=== PATIENT | female | born 1980 | race Caucasian/White ===

== ENCOUNTER 2016-04-27 10:53 | Inpatient (IN) | payer BC ==
[2016-04-27] MEDS ORDERED: DIAZEPAM 5 MG TAB PO ONE ×3 (11:26→14:25)
[2016-04-27] MEDS ORDERED: DIAZEPAM 5 MG TAB ONE ×3 (11:32→14:27)
[2016-04-27] MEDS ORDERED: THIAMINE 100 MG TAB PO ONE (11:35)
[2016-04-27] MEDS ORDERED: THIAMINE 100 MG TAB ONE (11:39)
[2016-04-27 11:43] LABS: BASOPHILS % (AUTO) 0 % (0-3); EOSINOPHILS % (AUTO) 0 % (0-9); HEMATOCRIT 40 % (35-47); MEAN CORPUSCULAR HGB CONC 35.5 gm/dl (32.0-36.0); MEAN CORPUSCULAR VOLUME 86 fL (81-99); MONOCYTES % (AUTO) 3.2 % (0-12)
[2016-04-27 12:07] LABS: ALBUMIN 4.4 gm/dl (3.4-5.0); ALT 33 IU/L (14-63); CALCIUM 9.2 mg/dl (8.5-10.1); GLOM FILT RATE 67 mL/min (>60); MAGNESIUM 1.5 mg/dl (1.8-2.4); POTASSIUM 3.8 mMol/L (3.5-5.1); SODIUM 136 mMol/L (136-145); THYROID STIMULATING HORMONE 1.142 uIU/ml (0.358-3.740)
[2016-04-27 13:08] LABS: APPEARANCE,URINE Clear; BILIRUBIN,URINE NEGATIVE (NEGATIVE); COLOR,URINE Amber; GLUCOSE, URINE (UA) NEGATIVE (NEGATIVE); KETONES,URINE 2+ (NEGATIVE); LEUKOCYTE ESTERASE ,URINE TRACE (NEGATIVE); NITRATE,URINE NEGATIVE (NEGATIVE); OCCULT BLOOD,URINE 2+ (NEG-TRACE); UROBILINOGEN,URINE 0.2 (0.2-1.0 EU)
[2016-04-27 13:17] LABS: AMPHETAMINES POSITIVE (NEGATIVE); METHADONE NEGATIVE (NEGATIVE); OPIATES(OP13) NEGATIVE (NEGATIVE); PROPOXYPHENE(PPX) NEGATIVE (NEGATIVE); TRICYCLIC ANTIDEPRESSANTS POSITIVE (NEGATIVE)
[2016-04-27 13:18] LABS: OXYCODONE(OXY) NEGATIVE (NEGATIVE)
[2016-04-27] MEDS ORDERED: ALUMINUM/MAGNESIUM 30 ML SUS PO PRN ×2 (14:42→18:43)
[2016-04-27] MEDS: ONDANSETRON 4 MG ODT BU PRN (17:47)
[2016-04-27] MEDS: LORAZEPAM 0.5 MG TAB PO PRN ×2 (18:27→23:15)
[2016-04-27] MEDS ORDERED: LORAZEPAM 2 MG/ML SOL IV PRN (18:43)
[2016-04-27] MEDS ORDERED: ONDANSETRON HCL 4 MG/2 ML SOL IV PRN (18:43)
[2016-04-27] MEDS: MAGNESIUM OXIDE 400 MG TAB PO SCH ×2 (19:31→23:06)
[2016-04-27] MEDS: SODIUM CHLORIDE 0.9% FLUSH 10 ML SOL IV SCH ×2 (19:33→19:57)
[2016-04-27] MEDS ORDERED: SODIUM CHLORIDE 0.9% 1000ML 1,000 ML IV ONE (19:39)
[2016-04-27] MEDS: SODIUM CHLORIDE 0.9% 1000ML 1,000 ML IV SCH (22:04)
[2016-04-28] MEDS: MAGNESIUM OXIDE 400 MG TAB PO SCH ×6 (03:04→19:58)
[2016-04-28] MEDS: SODIUM CHLORIDE 0.9% FLUSH 10 ML SOL IV SCH ×3 (03:04→18:24)
[2016-04-28] MEDS: LORAZEPAM 0.5 MG TAB PO PRN ×7 (07:16→19:58)
[2016-04-28] MEDS ORDERED: SODIUM CHLORIDE 0.9% 500 ML 500 ML IV ONE (07:58)
[2016-04-28 08:07] LABS: POTASSIUM 3.3 mMol/L (3.5-5.1)
[2016-04-28] MEDS ORDERED: POTASSIUM CHLORIDE 10 MEQ TER PO SCH ×2 (09:00→12:40)
[2016-04-28] MEDS ORDERED: MULTIVITAMIN2 1 EA TAB PO SCH (09:00)
[2016-04-28] MEDS ORDERED: THIAMINE 100 MG TAB PO SCH (09:00)
[2016-04-28] MEDS ORDERED: FOLIC ACID 1 MG TAB PO SCH (09:00)
[2016-04-28] MEDS: SODIUM CHLORIDE 0.9% 1000ML 1,000 ML IV SCH ×2 (09:09→19:59)
[2016-04-28] MEDS: MULTIVITAMIN2 1 EA TAB PO SCH (09:39)
[2016-04-28] MEDS: PANTOPRAZOLE SODIUM 40 MG ECT PO SCH (09:40)
[2016-04-28] MEDS: THIAMINE 100 MG TAB PO SCH (09:40)
[2016-04-28] MEDS: FOLIC ACID 1 MG TAB PO SCH (09:40)
[2016-04-28] MEDS: ONDANSETRON 4 MG ODT BU PRN (11:04)
[2016-04-28] MEDS ORDERED: ACETAMINOPHEN 500 MG 500 MG TAB PO PRN (17:04)
[2016-04-28] MEDS: IBUPROFEN 400 MG TAB PO PRN (18:29)
[2016-04-28] MEDS ORDERED: LOPERAMIDE HYDROCHLORIDE 2 MG CAP PO PRN (20:17)
[2016-04-29] MEDS: IBUPROFEN 400 MG TAB PO PRN ×2 (00:43→14:07)
[2016-04-29] MEDS: LORAZEPAM 0.5 MG TAB PO PRN ×8 (00:44→20:50)
[2016-04-29] MEDS: SODIUM CHLORIDE 0.9% FLUSH 10 ML SOL IV SCH ×4 (02:45→18:20)
[2016-04-29] MEDS: SODIUM CHLORIDE 0.9% 1000ML 1,000 ML IV SCH (06:30)
[2016-04-29 07:16] LABS: BASOPHILS % (AUTO) 1 % (0-3); EOSINOPHILS % (AUTO) 2 % (0-9); HEMATOCRIT 33 % (35-47); MEAN CORPUSCULAR HGB CONC 35.7 gm/dl (32.0-36.0); MEAN CORPUSCULAR VOLUME 86 fL (81-99); MONOCYTES % (AUTO) 5.8 % (0-12); NEUTROPHILS % (AUTO) 73.3 % (37-80)
[2016-04-29 07:17] LABS: CALCIUM 7.7 mg/dl (8.5-10.1); MAGNESIUM 1.7 mg/dl (1.8-2.4); PHOSPHORUS 2.9 mg/dl (2.6-4.7); POTASSIUM 3.3 mMol/L (3.5-5.1)
[2016-04-29] MEDS: FOLIC ACID 1 MG TAB PO SCH (08:05)
[2016-04-29] MEDS: THIAMINE 100 MG TAB PO SCH (08:05)
[2016-04-29] MEDS: MULTIVITAMIN2 1 EA TAB PO SCH (08:05)
[2016-04-29] MEDS: PANTOPRAZOLE SODIUM 40 MG ECT PO SCH (08:06)
[2016-04-29] MEDS: MAGNESIUM OXIDE 400 MG TAB PO SCH ×5 (08:09→20:45)
[2016-04-29] MEDS: POTASSIUM CHLORIDE 10 MEQ TER PO SCH ×2 (09:54→20:46)
[2016-04-29] MEDS ORDERED: DIPHENHYDRAMINE 25 MG CAP PO PRN (19:06)
[2016-04-30 06:08] VITALS: PULSE 86; TEMP 98
[2016-04-30 08:17] VITALS: BP 120/87; RESP 18; O2SAT 96
[2016-04-30] MEDS: PANTOPRAZOLE SODIUM 40 MG ECT PO SCH (08:26)
[2016-04-30] MEDS: FOLIC ACID 1 MG TAB PO SCH (08:26)
[2016-04-30] MEDS: MULTIVITAMIN2 1 EA TAB PO SCH (08:27)
[2016-04-30] MEDS: SODIUM CHLORIDE 0.9% FLUSH 10 ML SOL IV SCH (08:28)
[2016-04-30] MEDS: THIAMINE 100 MG TAB PO SCH (08:28)
[2016-04-30] MEDS: IBUPROFEN 400 MG TAB PO PRN (09:08)
[2016-04-30] MEDS ORDERED: CLONAZEPAM 0.5 MG TAB PO ONE (09:34)
== END 2016-04-30 10:00 | disposition home or self-care (01) | DRG 775 ==
LOC: ED 10:53 → ACUTE CARE 14:33 → UNDOADMIN 14:33 → ACUTE CARE 14:55
PROVIDERS: ADMIT Family Medicine; ATTEND Family Medicine
DX: F10.239 Alcohol dependence with withdrawal, unspecified (principal); E83.42 Hypomagnesemia; Y90.0 Blood alcohol level of less than 20 mg/100 ml; E87.6 Hypokalemia; F41.9 Anxiety disorder, unspecified; H10.33 Unspecified acute conjunctivitis, bilateral
CPT/HCPCS: 36415; 80048; 80053; 80305; 80307; 81001; 82150; 83735; 84100; 84132; 84443; 84703; 85025; 85610; 99284; J2405

== ENCOUNTER 2017-04-11 16:17 | Emergency (ER) | payer BC ==
[2017-04-11] MEDS ORDERED: KETOROLAC TROMETHAMINE 30 MG/ML SOL ONE (17:10)
[2017-04-11] MEDS ORDERED: KETOROLAC TROMETHAMINE 30 MG/ML SOL IM ONE (17:15)
[2017-04-11] MEDS ORDERED: ALPRAZOLAM 0.25 MG TAB PO ONE (17:31)
[2017-04-11] MEDS ORDERED: ALPRAZOLAM 0.25 MG TAB ONE (17:33)
[2017-04-11] MEDS ORDERED: CEFTRIAXONE 1 GM PDS IM ONE (18:03)
[2017-04-11] MEDS ORDERED: AZITHROMYCIN 250 MG TAB PO ONE (18:08)
[2017-04-11] MEDS ORDERED: METRONIDAZOLE 250 MG TAB PO ONE (18:08)
[2017-04-11] MEDS ORDERED: LEVONORGESTREL 1.5 MG TAB PO ONE (18:11)
[2017-04-11] MEDS ORDERED: ONDANSETRON 4 MG ODT BU ONE (18:11)
[2017-04-11] MEDS ORDERED: ONDANSETRON 4 MG ODT ONE (18:17)
[2017-04-11 18:33] LABS: AMPHETAMINES NEGATIVE (NEGATIVE); METHADONE NEGATIVE (NEGATIVE); OPIATES(OP13) NEGATIVE (NEGATIVE); OXYCODONE(OXY) NEGATIVE (NEGATIVE); PROPOXYPHENE(PPX) NEGATIVE (NEGATIVE); TRICYCLIC ANTIDEPRESSANTS NEGATIVE (NEGATIVE)
[2017-04-11 18:36] LABS: BASOPHILS % (AUTO) 1 % (0-3); EOSINOPHILS % (AUTO) 0 % (0-9); HEMATOCRIT 44 % (35-47); MEAN CORPUSCULAR HGB CONC 35.3 gm/dl (32.0-36.0); MEAN CORPUSCULAR VOLUME 84 fL (81-99); MONOCYTES % (AUTO) 8.8 % (0-12); NEUTROPHILS % (AUTO) 52.4 % (37-80)
[2017-04-11] MEDS ORDERED: HYDROMORPHONE 1 MG/ML SYRINGE ONE (18:36)
[2017-04-11] MEDS ORDERED: HYDROMORPHONE HCL 2 MG/ML SOL IM ONE (18:56)
[2017-04-11 19:01] LABS: ALT 23 IU/L (14-63); CALCIUM 8.4 mg/dl (8.5-10.1); GLOM FILT RATE 84 mL/min (>60); POTASSIUM 3.4 mMol/L (3.5-5.1); SALICYLATE < 2.8 mg/dl (2.8-30.0); SODIUM 146 mMol/L (136-145)
[2017-04-11] MEDS ORDERED: LORAZEPAM 2 MG/ML SOL ONE ×2 (19:05→21:45)
[2017-04-11] MEDS ORDERED: LORAZEPAM 2 MG/ML SOL IM ONE (19:06)
[2017-04-11] MEDS ORDERED: DEXTROSE/SALINE 0.45% 1,000 ML IV ONE (20:45)
[2017-04-11] MEDS ORDERED: THIAMINE 100 MG/ML 100 MG/ML SOL IV ONE (20:45)
[2017-04-11] MEDS ORDERED: PROCHLORPERAZINE EDISYLATE 5 MG/ML SOL ONE (21:03)
[2017-04-11] MEDS ORDERED: PROCHLORPERAZINE EDISYLATE 5 MG/ML SOL IV ONE (21:04)
[2017-04-11] MEDS ORDERED: AZITHROMYCIN 250 MG TAB ONE (21:43)
[2017-04-11] MEDS ORDERED: THIAMINE 100 MG/ML 100 MG/ML SOL ONE (21:43)
[2017-04-11] MEDS ORDERED: LORAZEPAM 2 MG/ML SOL IV ONE (21:44)
[2017-04-11] MEDS ORDERED: CEFTRIAXONE 1 GM PDS ONE (21:46)
[2017-04-11] MEDS ORDERED: LIDOCAINE HCL 1% MPF SOL ONE (21:46)
[2017-04-11 22:05] VITALS: BP 122/87; PULSE 108; RESP 14; TEMP 96.7; O2SAT 95
== END 2017-04-11 22:19 ==
LOC: ED 16:17
DX: T74.21XA Adult sexual abuse, confirmed, initial encounter (principal); F10.229 Alcohol dependence with intoxication, unspecified; Y90.8 Blood alcohol level of 240 mg/100 ml or more; R45.851 Suicidal ideations
CPT/HCPCS: 36415; 70450; 80053; 80305; 80307; 84703; 85025; 96365; 96372; 96374; 96375; 99284; 99285; J0696; J0780; J1885; J2060; A9270-GY; J1170; J2001; J3411

== ENCOUNTER 2017-11-13 15:12 | Emergency (ER) | payer SELFPAY ==
[2017-11-13 15:28] VITALS: RESP 20; O2SAT 98
[2017-11-13 16:14] LABS: ALBUMIN 3.4 gm/dl (3.4-5.0); BILIRUBIN,TOTAL 0.1 mg/dl (0.2-1.0); CALCIUM 7.9 mg/dl (8.5-10.1); CREATININE 0.64 mg/dl (0.60-1.00); POTASSIUM 3.7 mMol/L (3.5-5.1); THYROID STIMULATING HORMONE 0.254 uIU/ml (0.358-3.740); TOTAL PROTEIN 7.1 gm/dl (6.4-8.2)
[2017-11-13 16:18] LABS: ALCOHOL 0.343 gm/dl (0.000-0.08)
[2017-11-13 16:19] LABS: BASOPHILS % (AUTO) 1 % (0-3); EOSINOPHILS % (AUTO) 0 % (0-9); HEMATOCRIT 45 % (35-47); HEMOGLOBIN 14.3 gm/dl (12.0-15.5); LYMPHOCYTES % (AUTO) 32.5 % (10-50); MEAN CORPUSCULAR HEMOGLOBIN 28.6 pg (27.0-32.0); MEAN CORPUSCULAR HGB CONC 32.1 gm/dl (32.0-36.0); MEAN CORPUSCULAR VOLUME 89 fL (81-99); MONOCYTES % (AUTO) 12.8 % (0-12); NEUTROPHILS % (AUTO) 53.4 % (37-80)
[2017-11-13 16:28] LABS: APPEARANCE,URINE Clear; BILIRUBIN,URINE NEGATIVE (NEGATIVE); COLOR,URINE Light yellow; GLUCOSE, URINE (UA) NEGATIVE (NEGATIVE); KETONES,URINE NEGATIVE (NEGATIVE); LEUKOCYTE ESTERASE ,URINE NEGATIVE (NEGATIVE); NITRATE,URINE NEGATIVE (NEGATIVE); OCCULT BLOOD,URINE NEGATIVE (NEG-TRACE); UROBILINOGEN,URINE 0.2 (0.2-1.0 EU)
[2017-11-13 16:43] LABS: AMPHETAMINES NEGATIVE (NEGATIVE); BACTERIA NEGATIVE (< 1+); BARBITUATES NEGATIVE (NEGATIVE); BENZODIAZEPINES NEGATIVE (NEGATIVE); CANNABINOL(THC) NEGATIVE (NEGATIVE); COCAINE(COC) NEGATIVE (NEGATIVE); CRYSTALS NEGATIVE (0-3 AVE/HPF); METHADONE NEGATIVE (NEGATIVE); METHAMPHETAMINES NEGATIVE (NEGATIVE); OPIATES(OPI) NEGATIVE (NEGATIVE); OXYCODONE(OXY) NEGATIVE (NEGATIVE); PROPOXYPHENE(PPX) NEGATIVE (NEGATIVE); RBC,URINE NEG (0-3AV/HPF); TRICYCLIC ANTIDEPRESSANTS NEGATIVE (NEGATIVE); WBC,URINE 0-1 (0-5AV/HPF)
[2017-11-13] MEDS ORDERED: DIAZEPAM 5 MG TAB PO ONE ×3 (18:05→20:34)
[2017-11-13] MEDS ORDERED: DIAZEPAM 5 MG TAB ONE ×3 (18:07→20:35)
[2017-11-13 18:14] VITALS: BP 132/91; PULSE 120; TEMP 96.8
== END 2017-11-13 20:38 | disposition short-term general hospital (02) | DRG 897 ==
LOC: ED 15:12
DX: F10.20 Alcohol dependence, uncomplicated (principal); T14.91XA Suicide attempt, initial encounter; F32.9 Major depressive disorder, single episode, unspecified
CPT/HCPCS: 36415; 80053; 80305; 80307; 81001; 84443; 84703; 85025; 99283; 99284; A9270-GY